=== PATIENT | male | born 1985 | race Caucasian/White ===

== ENCOUNTER 2025-07-06 10:05 | Emergency (ER) | payer OTHER, SELFPAY ==
[2025-07-06 10:18] VITALS: BP 126/90; PULSE 111; RESP 20; TEMP 36.4; O2SAT 96; BMI 29.6
[2025-07-06] MEDS: OXYMETAZOLINE 0.05% NASAL SPRAY 1 SPRAY NOSTRIL-B (10:54)
[2025-07-06 11:03] LABS: Hematocrit* 44.6 % (37.0-53.0); Hemoglobin* 15.6 gm/dL (13.5-17.5); Immature Granulocytes Abs Auto 0.01 K/uL (0.00-0.30); Immature Granulocytes Pct Auto 0.2 %; Mean Corpuscular HGB Conc 35 gm/dL (32-36); Mean Corpuscular Hemoglobin 31 pg (26-34); Mean Corpuscular Volume 90 fL (80-100); RDW Coefficient of Variation % 11.8 % (11.5-15.5); Red Blood Count* 4.97 m/uL (4.30-5.90); White Blood Count* 5.14 K/uL (4.50-11.00)
[2025-07-06 11:04] LABS: Lymphocytes Absolute Auto 0.80 K/uL (0.90-2.90); Slide Review Reflex No
[2025-07-06 11:15] LABS: Albumin* 4.8 g/dL (3.3-5.0); Chloride* 101 mmol/L (96-114)
[2025-07-06 11:16] LABS: Potassium* 3.9 mmol/L (3.6-5.1); Sodium* 135 mmol/L (135-149)
[2025-07-06 11:18] LABS: Alanine Aminotransferase* 52 U/L (4-50); Anion Gap 8 mEq/L (7-15); Aspartate Amino Transferase* 32 U/L (12-35); Blood Urea Nitrogen* 19 mg/dL (5-24); Carbon Dioxide* 26 mmol/L (20-32); Creatinine* 1.0 mg/dL (0.5-1.5); Est. Creatinine Clearance* 126.23; Estimated Glomerular Filt Rate 99 ml/min
[2025-07-06 11:19] LABS: Alkaline Phosphatase* 51 U/L (40-150); Bilirubin Total* 1.0 mg/dL (0.1-1.5); Calcium* 9.4 mg/dL (8.4-10.6); Glucose* 154 mg/dL (60-115); INR 1.32 (0.91-1.10); Prothrombin Time 17.3 Seconds; Total Protein* 7.9 g/dL (6.0-8.3)
[2025-07-06 11:32] VITALS: BP 126/81; PULSE 100; RESP 16; O2SAT 96
[2025-07-06 12:01] VITALS: BP 122/80; PULSE 105; RESP 14; O2SAT 96
--- NOTE | 2025-07-06 12:09 | ED.EPISTAXIS ---
History of Present Illness General Chief Complaint: Epistaxis/Nosebleed Stated Complaint: Bloody nose Time Seen by Provider: 07/06/25 10:35 History of Present Illness HPI Narrative: Patient is a 39-year-old gentleman with history of epistaxis who presents with acute epistaxis. He had some nosebleeds last several days and today is having significant bleeding from both nostrils. He has vomited some of the swallowed blood. He is feeling lightheaded. He has no history of any medical issues and is otherwise in good health. He has had no recent trauma. He thinks the cold air is contributing to his epistaxis. Related Data Home Medications ?Medication ?Instructions ?Recorded ?Confirmed No Known Home Medications 07/06/25 07/06/25 Allergies Allergy/AdvReac Type Severity Reaction Status Date / Time No Known Drug Allergies Allergy Verified 07/06/25 10:17 Review of Systems Status of ROS: Reports: 10 or more systems reviewed and unremarkable except as noted in History and below PFSH PFSH Social History Smoking Status: Former smoker How often do you have a drink containing alcohol: 4 or more times a week AUDIT-C Alcohol total score: 4 Non-prescribed substance use: marijuana (any form) Non-prescribed substance use details: thc occasional use on weekends Exam Narrative: Exam Narrative: EXAM GENERAL: Patient appears very uncomfortable holding his nose which is bleeding out of both nostrils. EYES: No scleral icterus. ENT: Tympanic membranes and oropharynx normal. THYROID: no thyroid nodules or thyromegaly. LYMPH: No supraclavicular or cervical lymphadenopathy. SKIN: Visible skin seen during exam normal or with benign process only. EXT: No dependent lower extremity pedal edema. HEART: Regular rate and rhythm with no murmurs, rubs, or gallops. LUNGS: Clear to auscultation bilaterally with no crackles or wheezes. ABD: Soft, non tender, non distended. PSYCH: Good eye contact, speech is not pressured. Const: Vital Signs, click to edit/add: Vital Signs - 24 hr 07/06/25 10:18 Temperature 97.5 F L Pulse Rate [Pulse Oximeter] 111 H Respiratory Rate 20 Blood Pressure [Ri ght Upper Arm] 126/90 H Pulse Oximetry 96 Oxygen Delivery Me thod Room Air Course Course ED Course: Patient seen examined. Direct pressure was placed which was modestly effective in controlling the bleeding. I then put packing simple with nostrils which were saturated with Afrin. Hemostasis was achieved. Patient became very lightheaded after numerous episodes of vomiting and nasal bleeding and as a result I did give a L of normal saline did send off labs which were reassuring with the exception of his INR 1.32. Patient has no history of any clotting disorder or easy bruising. Vital Signs Vital signs: Initial Vital Signs Temperature 97.5 F L 07/06/25 10:18 Temperature Source Temporal Artery Scan 07/06/25 10:18 Pulse Rate 111 H 07/06/25 10:18 Pulse Rhythm Regular 07/06/25 10:18 Respiratory Rate 20 07/06/25 10:18 Blood Pressure 126/90 H 07/06/25 10:18 Blood Pressure Mean 102 07/06/25 10:18 Pulse Oximetry 96 07/06/25 10:18 Oxygen Delivery Method Room Air 07/06/25 10:18 Vital Signs Temperature 97.5 F L 07/06/25 10:18 Pulse Rate 111 H 07/06/25 10:18 Respiratory Rate 20 07/06/25 10:18 Blood Pressure 126/90 H 07/06/25 10:18 Pulse Oximetry 96 07/06/25 10:18 Oxygen Delivery Method Room Air 07/06/25 10:18 Temperature 97.5 F L 07/06/25 10:18 Pulse Rate 111 H 07/06/25 10:18 Respiratory Rate 20 07/06/25 10:18 Blood Pressure 126/90 H 07/06/25 10:18 Pulse Oximetry 96 07/06/25 10:18 Oxygen Delivery Method Room Air 07/06/25 10:18 Medications Administered Medications: Generic Name Dose Route Start Last Admin Trade Name Freq PRN Reason Stop Dose Admin Oxymetazoline HCl 1 spray 07/06/25 10:36 07/06/25 10:54 Oxymetazoline 0.05% Nasal Post NOSTRIL-B 1 spray BID PRN Administration Discontinued Medications Generic Name Dose Route Start Last Admin Trade Name Freq PRN Reason Stop Dose Admin Sodium Chloride 1,000 mls @ 1,000 mls/hr 07/06/25 10:46 07/06/25 11:53 0.9 % Sodium Chloride 1000 Ml IV 07/06/25 11:45 Infused .Q1H TELLY Infusion MDM - Epistaxis MDM Narrative Medical decision making narrative: Epistaxis. The patient's epistaxis is controlled with the packing with gauze saturated with Afrin. He will leave the gauze in place tonight and remove in the morning. I did recommend follow-up with primary care with regards to the mildly elevated INR. Labs reviewed. I did also recommend Flonase as well as nocturnal Vaseline to the nose for the duration of this winter. Lab Data Labs: Lab Results 07/06/25 Range/Units 10:50 WBC 5.14 (4.50-11.00) K/uL RBC 4.97 (4.30-5.90) m/uL Hgb 15.6 (13.5-17.5) gm/dL Hct 44.6 (37.0-53.0) % MCV 90 (80-100) fL MCH 31 (26-34) pg MCHC 35 (32-36) gm/dL RDW Coeff of [place] 11.8 (11.5-15.5) % Plt Count 195 (140-440) K/uL Neut % (Auto) 68.2 (42.0-72.0) % Lymph % (Auto) 15.0 L (20-44) % Steele % (Auto) 15.4 H (0.0-11.0) % Eos % (Auto) 0.6 (0.0-7.0) % Baso % (Auto) 0.6 (0.0-3.0) % Neut # (Auto) 3.51 (1.7-7.0) K/uL Lymph # (Auto) 0.80 L (0.90-2.90) K/uL Steele # (Auto) 0.80 (0.00-0.90) K/UL Eos # (Auto) 0.03 (0.00-0.50) K/uL Baso # (Auto) 0.03 (0.00-0.30) K/uL Abs Immat Gran (auto) 0.01 (0.00-0.30) K/uL Imm/Tot Granulo (auto) 0.2 % INR 1.32 H (0.91-1.10) Sodium 135 (135-149) mmol/L Potassium 3.9 (3.6-5.1) mmol/L Chloride 101 (96-114) mmol/L Carbon Dioxide 26 (20-32) mmol/L Anion Gap 8 (7-15) mEq/L BUN 19 (5-24) mg/dL Creatinine 1.0 (0.5-1.5) mg/dL Estimated Creat Clear 126.23 Estimated GFR 99 ml/min Glucose 154 H (60-115) mg/dL Calcium 9.4 (8.4-10.6) mg/dL Total Bilirubin 1.0 (0.1-1.5) mg/dL AST 32 (12-35) U/L ALT 52 H (4-50) U/L Alkaline Phosphatase 51 (40-150) U/L Total Protein 7.9 (6.0-8.3) g/dL Albumin 4.8 (3.3-5.0) g/dL Discharge Plan Discharge Clinical Impression: Epistaxis Patient Disposition: Home, Self-Care Condition: Stable Instructions: Nosebleed (ED) Additional Instructions: Take packing out tomorrow. Flonase 1 spray each nostril daily starting tomorrow. Vaseline in 2 weeks nostril at bedtime starting tomorrow. Follow-up with your doctor as needed. Activity Level: No Restrictions Discharge Diet: Regular Prescriptions: No Action No Known Home Medications Follow Up/Referrals: Provider,Not a Local [Primary Care Provider, Family Practice] Stand Alone Forms: MyHealth Info Instructions
== END 2025-07-06 12:35 | disposition home or self-care (01) ==
PROVIDERS: Emergency Provider Internal Medicine
DX: R04.0 Epistaxis (principal)
CPT/HCPCS: 36415; 80053; 85025; 85610; 96360; 99283; J7030